=== PATIENT | female | born 1990 | race American Indian/Alaskan Native ===

== ENCOUNTER 2017-05-06 11:46 | Emergency (ER) | payer MEDICAID ==
[2017-05-06 11:51] VITALS: BP 130/82
[2017-05-06] MEDS ORDERED: BENADRYL IV ONE (12:19)
[2017-05-06] MEDS ORDERED: PEPCID IV ONE ×2 (12:19)
[2017-05-06] MEDS ORDERED: BENADRYL ONE (12:19)
[2017-05-06] MEDS ORDERED: NACL 0.9% 1000 ML 1,000 ML IV ONE (12:19)
--- NOTE | 2017-05-06 12:23 | Emergency Department Report ---
ED Allergic Reaction HPI - General Chief complaint: Allergic Reaction Stated complaint: ALLERGIC REACTION Time Seen by Provider: 05/06/17 12:18 Source: patient Mode of arrival: Ambulatory Limitations: No Limitations - History of Present Illness Initial Comments: Patient is 26 years old female presented to the ER with acute allergic reaction to ibuprofen. Patient stated that she took ibuprofen for her menstrual cramps. She presented with facial swelling, diffuse rash and itching. Patient denied any difficulty swallowing, shortness of breath or difficulty breathing. MD Complaint: allergic reaction, hives, facial swelling -: Sudden, This morning Exposure: medication Symptoms: rash, itching, facial swelling. denies: lip swelling, difficulty swallowing, difficulty breathing, orolingual swelling, hoarseness, syncopy, dizziness, nausea, vomiting, abdominal pain Severity: moderate Treatment Prior to Arrival: none - Related Data Previous Rx's Medication Instructions Recorded Last Taken Type Famotidine [Pepcid] 20 mg PO BID #40 tablet 09/13/15 Unknown Rx Nitrofurantoin Conway/M-Cryst 100 mg PO Q12HR #14 capsule 09/13/15 Unknown Rx [Macrobid CAP] Ondansetron [Zofran TAB] 4 mg PO Q8HR PRN #30 tablet 09/13/15 Unknown Rx Pnv No.95/Ferrous Fum/Folic AC 1 each PO DAILY #90 tablet 09/13/15 Unknown Rx [Prenavite Tablet] Allergies Allergy/AdvReac Type Severity Reaction Status Date / Time No Known Allergies Allergy Verified 05/06/17 11:49 ED Review of Systems ROS: Stated complaint: ALLERGIC REACTION Other details as noted in HPI Comment: All other systems reviewed and negative Constitutional: denies: chills, fever Respiratory: denies: cough, orthopnea, shortness of breath, SOB with exertion, SOB at rest Cardiovascular: denies: chest pain, palpitations, dyspnea on exertion Gastrointestinal: denies: abdominal pain, nausea Skin: rash, pruritus Neurological: denies: headache, weakness ED Past Medical Hx - Past Medical History Previous Medical History?: No - Surgical History Past Surgical History?: No - Social History Smoking Status: Never Smoker Substance Use Type: None - Medications Home Medications: Home Medications Medication Instructions Recorded Confirmed Last Taken Type Famotidine [Pepcid] 20 mg PO BID #40 tablet 09/13/15 Unknown Rx Nitrofurantoin Conway/M-Cryst 100 mg PO Q12HR #14 capsule 09/13/15 Unknown Rx [Macrobid CAP] Ondansetron [Zofran TAB] 4 mg PO Q8HR PRN #30 tablet 09/13/15 Unknown Rx Pnv No.95/Ferrous Fum/Folic AC 1 each PO DAILY #90 tablet 09/13/15 Unknown Rx [Prenavite Tablet] ED Physical Exam - General Limitations: No Limitations General appearance: alert, in no apparent distress - Head Head exam: Present: atraumatic, normocephalic - Eye Eye exam: Present: normal appearance, PERRL - ENT ENT exam: Present: normal exam, normal orophraynx, mucous membranes moist - Neck Neck exam: Present: normal inspection, full ROM. Absent: tenderness, meningismus, lymphadenopathy, thyromegaly - Respiratory Respiratory exam: Present: normal lung sounds bilaterally. Absent: respiratory distress, wheezes, rales, rhonchi, stridor, chest wall tenderness, accessory muscle use, decreased breath sounds, prolonged expiratory - Cardiovascular Cardiovascular Exam: Present: regular rate, normal rhythm, normal heart sounds - GI/Abdominal GI/Abdominal exam: Present: soft, normal bowel sounds. Absent: distended, tenderness, guarding, rebound, rigid, organomegaly, mass, bruit, pulsatile mass , hernia - Extremities Exam Extremities exam: Present: normal inspection, full ROM, normal capillary refill - Neurological Exam Neurological exam: Present: alert, oriented X3, CN II-XII intact, normal gait - Skin Skin exam: Present: warm, dry, rash, urticaria. Absent: cyanosis, diaphoretic, erythema, vesicles, petechiae, pallor, abrasion, ecchymosis ED Course Vital Signs 05/06/17 11:49 Temperature 98.3 F Pulse Rate 101 H Respiratory 18 Rate Blood Pressure 130/82 O2 Sat by Pulse 97 Oximetry - Reevaluation(s) Reevaluation #1: 05/06/17 14:36 Patient stated that she is feeling much better. Her rash is completely resolved. Patient denying any shortness of breath, difficulty swallowing or difficulty breathing. Critical care attestation.: If time is entered above; I have spent that time in minutes in the direct care of this critically ill patient, excluding procedure time. ED Disposition Clinical Impression: Allergic reaction caused by a drug Disposition: DC-01 TO HOME OR SELFCARE Is pt being admited?: No Condition: Stable Instructions: Allergies (ED)
== END 2017-05-06 15:35 | disposition home or self-care (01) ==
LOC: ED 11:46
DX: T50.905A Adverse effect of unspecified drugs, medicaments and biological substances, initial encounter (principal); Y92.89 Other specified places as the place of occurrence of the external cause
CPT/HCPCS: 96361; 96374; 96375; 99282; J1200; J2930; J7030

== ENCOUNTER 2017-09-05 22:45 | Emergency (ER) | payer MEDICAID ==
[2017-09-05 23:27] VITALS: BP 98/60
== END 2017-09-05 23:56 | disposition left against medical advice (07) ==
LOC: ED 22:45
DX: R42 Dizziness and giddiness (principal); R11.0 Nausea; Z53.21 Procedure and treatment not carried out due to patient leaving prior to being seen by health care provider
CPT/HCPCS: 93005; 93010

== ENCOUNTER 2018-09-14 12:12 | Emergency (ER) | payer MEDICAID ==
[2018-09-14 12:18] VITALS: BP 109/73
[2018-09-14] MEDS ORDERED: TYLENOL PO ONE (12:25)
--- NOTE | 2018-09-14 12:27 | Emergency Department Report ---
Blank Doc - Documentation Documentation: This is a 28-year-old female that presents with URI symptoms and sore throat. This initial assessment/diagnostic orders/clinical plan/treatment(s) is/are subject to change based on patient's health status, clinical progression and re- assessment by fellow clinical providers in the ED. Further treatment and workup at subsequent clinical providers discretion. Patient/guardians urged not to elope from the ED as their condition may be serious if not clinically assessed and managed. Initial orders include: 1- Patient sent to [facility] for further evaluation and treatment 2- cxr 3- tylenol and RN to repeat vitals 4- strep swab
[2018-09-14 13:38] LABS: Bacteria,Urine 1+ /HPF (Negative); Bilirubin,Urine NEG (Negative); Blood,Urine NEG (Negative); Color,Urine Yellow (Yellow); Mucus,Urine 1+ /HPF; Urobilinogen,Urine < 2.0 mg/dL (<2.0)
--- NOTE | 2018-09-14 13:38 | Emergency Department Report ---
HPI - General Chief Complaint: Sore Throat Time Seen by Provider: 09/14/18 12:20 - HPI HPI: Patient is a pleasant 28-year-old comes to the ER with a 3 day history of body aches and chills. On arrival to the ER her temperature was 100.3 and she was slightly tachycardic. Patient states that she has had a sore throat. She denies any cough. She denies abdominal pain. She denies dysuria. Patient has taken Motrin and Tylenol at home but has not felt better so she did not go to work today and came to the emergency room. ED Past Medical Hx - Past Medical History Previous Medical History?: No - Surgical History Past Surgical History?: No - Social History Smoking Status: Never Smoker Substance Use Type: Alcohol - Medications Home Medications: Home Medications Medication Instructions Recorded Confirmed Last Taken Type Amoxicillin [Trimox CAP] 500 mg PO BID #20 capsule 09/14/18 Unknown Rx ED Review of Systems ROS: Stated complaint: FLU LIKE SYMPTOMS Other details as noted in HPI Comment: All other systems reviewed and negative Physical Exam - Physical Exam Vital Signs: Vital Signs 09/14/18 12:16 Temperature 100.3 F H Pulse Rate 112 H Respiratory 18 Rate Blood Pressure 109/73 O2 Sat by Pulse 99 Oximetry Physical Exam: WDWN patient in NAD VS per RN flow sheet Alert and oriented to person, place and time. S1-S2. No S3 or S4. No systolic or diastolic murmur. No JVD. No pitting edema. throat red without exudates Lungs clear to auscultation bilaterally anteriorly and posteriorly. Abdomen soft nontender bowel sounds x4 Moves all extremities well. Mood and affect appropriate. ED Course Vital Signs 09/14/18 12:16 Temperature 100.3 F H Pulse Rate 112 H Respiratory 18 Rate Blood Pressure 109/73 O2 Sat by Pulse 99 Oximetry ED Medical Decision Making - Lab Data Result diagrams: 09/14/18 13:25 09/14/18 13:25 - Radiology Data Radiology results: report reviewed, image reviewed - Medical Decision Making Lab Results 09/14/18 09/14/18 09/14/18 Range/Units 13:14 13:25 13:25 WBC 6.5 (4.5-11.0) K/mm3 RBC 5.55 H (3.65-5.03) M/mm3 Hgb 13.3 (10.1-14.3) gm/dl Hct 39.5 (30.3-42.9) % MCV 71 L (79-97) fl MCH 24 L (28-32) pg MCHC 34 (30-34) % RDW 14.1 (13.2-15.2) % Plt Count 201 (140-440) K/mm3 Sodium 135 L (137-145) mmol/L Potassium 3.7 (3.6-5.0) mmol/L Chloride 98.7 (98-107) mmol/L Carbon Dioxide 22 (22-30) mmol/L Anion Gap 18 mmol/L BUN 6 L (7-17) mg/dL Creatinine 0.8 (0.7-1.2) mg/dL Estimated GFR > 60 ml/min BUN/Creatinine Ratio 8 % Glucose 96 (65-100) mg/dL Calcium 8.7 (8.4-10.2) mg/dL Urine Color Yellow (Yellow) Urine Turbidity Slightly-cloudy (Clear) Urine pH 5.0 (5.0-7.0) Ur Specific [place] 1.018 (1.003-1.030) Urine Protein 30 mg/dl (Negative) mg/dL Urine Glucose (UA) Neg (Negative) mg/dL Urine Ketones Neg (Negative) mg/dL Urine Blood Neg (Negative) Urine Nitrite Neg (Negative) Urine Bilirubin Neg (Negative) Urine Urobilinogen < 2.0 (<2.0) mg/dL Ur Leukocyte Esterase Tr (Negative) Urine WBC (Auto) 5.0 (0.0-6.0) /HPF Urine RBC (Auto) 4.0 (0.0-6.0) /HPF U Epithel Cells (Auto) 8.0 (0-13.0) /HPF Urine Bacteria (Auto) 1+ (Negative) /HPF Urine Mucus 1+ /HPF Urine HCG, Qual Negative (Negative) Group A Strep Rapid (Negative) 09/14/18 Range/Units Unknown WBC (4.5-11.0) K/mm3 RBC (3.65-5.03) M/mm3 Hgb (10.1-14.3) gm/dl Hct (30.3-42.9) % MCV (79-97) fl MCH (28-32) pg MCHC (30-34) % RDW (13.2-15.2) % Plt Count (140-440) K/mm3 Sodium (137-145) mmol/L Potassium (3.6-5.0) mmol/L Chloride (98-107) mmol/L Carbon Dioxide (22-30) mmol/L Anion Gap mmol/L BUN (7-17) mg/dL Creatinine (0.7-1.2) mg/dL Estimated GFR ml/min BUN/Creatinine Ratio % Glucose (65-100) mg/dL Calcium (8.4-10.2) mg/dL Urine Color (Yellow) Urine Turbidity (Clear) Urine pH (5.0-7.0) Ur Specific [place] (1.003-1.030) Urine Protein (Negative) mg/dL Urine Glucose (UA) (Negative) mg/dL Urine Ketones (Negative) mg/dL Urine Blood (Negative) Urine Nitrite (Negative) Urine Bilirubin (Negative) Urine Urobilinogen (<2.0) mg/dL Ur Leukocyte Esterase (Negative) Urine WBC (Auto) (0.0-6.0) /HPF Urine RBC (Auto) (0.0-6.0) /HPF U Epithel Cells (Auto) (0-13.0) /HPF Urine Bacteria (Auto) (Negative) /HPF Urine Mucus /HPF Urine HCG, Qual (Negative) Group A Strep Rapid Negative (Negative) Vital Signs 09/14/18 09/14/18 12:16 13:43 Temperature 100.3 F H Pulse Rate 112 H Respiratory 18 16 Rate Blood Pressure 109/73 O2 Sat by Pulse 99 Oximetry vss HR 90 on my exam no cough lungs clear throat red abd snt no dysuria no CVA tenderness labs noted ua noted u preg neg xray nap taking po dc home with dc plan of care - Differential Diagnosis urti pharyngitis v sinusitis v pna Critical care attestation.: If time is entered above; I have spent that time in minutes in the direct care of this critically ill patient, excluding procedure time. ED Disposition Clinical Impression: Pharyngitis, Fever Disposition: DC-01 TO HOME OR SELFCARE Is pt being admited?: No Does the pt Need Aspirin: No Condition: Stable Instructions: Pharyngitis (ED) Additional Instructions: DIET TOLERATED MEDS ORDERED TODAY IN ER FOLLOW INSTRUCTIONS ON THE BOTTLE FOLLOW UP PCP WITHIN 48 HOURS TO ENSURE YOU ARE GETTING BETTER ACTIVITY TOLERATED MOTRIN OR TYLENOL FOR PAIN OR FEVER RETURN TO THE ER FOR WORSENING SYMPTOMS NOT RELIEVED BY YOUR MEDICATIONS. Prescriptions: Amoxicillin [Trimox CAP] 500 mg PO BID #20 capsule Referrals: EBENEZER TORRES MD [Primary Care Provider] - 3-5 Days Time of Disposition: 14:22
[2018-09-14 13:39] LABS: HCG Qualitative,Urine Negative (Negative)
[2018-09-14 13:56] LABS: Hematocrit 39.5 % (30.3-42.9); Hemoglobin 13.3 gm/dl (10.1-14.3); Mean Corpuscular HGB Conc 34 % (30-34); Mean Corpuscular Volume 71 fl (79-97); Platelet Count 201 K/mm3 (140-440); Red Blood Count 5.55 M/mm3 (3.65-5.03); Red Cell Distribution Width 14.1 % (13.2-15.2)
[2018-09-14 14:12] LABS: BUN/Creatinine Ratio 8; Blood Urea Nitrogen 6 mg/dL (7-17); Calcium 8.7 mg/dL (8.4-10.2); Hemolysis Index 29
--- NOTE | 2018-09-14 14:41 | XRay Report ---
PA AND LATERAL CXR HISTORY: Cough. COMPARISON: None. FINDINGS: Cardiomediastinal silhouette: Normal cardiac size. Normal mediastinal contours. Lungs: Normal expansion. Normal lung aeration. No pleural effusions. No pneumothorax. Pulmonary vascularity: Normal. Support hardware: None. Additional findings: None. IMPRESSION: 1. Normal chest. Signer Name: Sivakumar Bullock MD Signed: 09/14/2018 2:36 PM Workstation Name: [id number]
== END 2018-09-14 14:38 | disposition home or self-care (01) ==
LOC: ED 12:12
DX: J02.9 Acute pharyngitis, unspecified (principal); Z88.5 Allergy status to narcotic agent
CPT/HCPCS: 36415; 71046; 80048; 81001; 81025; 85027; 87116; 87430; 99284